=== PATIENT | male | born 1985 | race Caucasian/White ===

== ENCOUNTER → 2021-09-29 | Day surgery (SDC) | payer OTHER ==
[~2021-09-29] VITALS: Ht 188 cm; Wt 104.3 kg
[2021-09-29 12:07] LABS: HCT 41.9 % (42.0-52.0); HGB 14.5 g/dl (13.2-18.0); MCH 29.2 pg (25.0-31.0); MCHC 34.6 g/dL (32.0-36.0); MCV 84.3 fL (78.0-100.0); MPV 9.7 fL (6.0-9.5); RBC 4.97 M/uL (4.70-6.00); RDW 11.9 % (11.5-14.0); WBC 6.8 K/uL (4.0-10.5)
== END | disposition home or self-care (01) ==
LOC: FAS 10:18
PROVIDERS: Legal Medicine
DX: M23.91 Unspecified internal derangement of right knee (principal); S83.241A Other tear of medial meniscus, current injury, right knee, initial encounter; M22.41 Chondromalacia patellae, right knee; F17.290 Nicotine dependence, other tobacco product, uncomplicated
CPT/HCPCS: 36415; 97161; 97530-GP; J0690; J1100; J1170; J2250; J2274; J2405; J2704; J3010; J7120